=== PATIENT | male | born 1985 | race American Indian/Alaskan Native ===

== ENCOUNTER 2016-07-21 17:58 | Emergency (ER) | payer BC ==
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
[2016-07-21] MEDS ORDERED: MOTRIN PO ONE (21:50)
[2016-07-21 23:10] VITALS: BP 123/52
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
== END 2016-07-21 23:57 | disposition home or self-care (01) ==
LOC: ED 17:58
DX: S46.912A Strain of unspecified muscle, fascia and tendon at shoulder and upper arm level, left arm, initial encounter (principal); F17.200 Nicotine dependence, unspecified, uncomplicated; V49.49XA Driver injured in collision with other motor vehicles in traffic accident, initial encounter; Y93.9 Activity, unspecified; Y92.9 Unspecified place or not applicable; Y99.9 Unspecified external cause status
CPT/HCPCS: 99283